=== PATIENT | female | born 1990 ===

== ENCOUNTER 2025-03-27 04:32 | Day surgery (SDC) | payer OTHER ==
[~2025-03-27 04:32] MED LIST: ONE-A-DAY PREN1 EAC1 PO
[2025-03-27] MEDS ORDERED: Ondansetron HCl 2 MG / ML 2ML Vial IV SCH (07:00)
[2025-03-27] MEDS ORDERED: NS 1,000 ML IV SCH (07:00)
[2025-03-27 09:12] VITALS: BP 121/80
== END 2025-03-27 10:11 | disposition home or self-care (01) ==
LOC: ATC 04:32
DX: O21.0 Mild hyperemesis gravidarum (principal)
CPT/HCPCS: 96361; 96374; J2405; J7030

== ENCOUNTER 2025-04-05 00:33 | Day surgery (SDC) | payer OTHER ==
[2025-04-05] MEDS ORDERED: Ondansetron HCl 2 MG / ML 2ML Vial IV SCH (06:55)
[2025-04-05] MEDS ORDERED: NS 1,000 ML IV SCH (06:55)
[2025-04-05 13:01] VITALS: BP 111/76
== END 2025-04-05 14:07 | disposition home or self-care (01) ==
LOC: ATC 00:33
DX: O21.0 Mild hyperemesis gravidarum (principal); Z79.899 Other long term (current) drug therapy
CPT/HCPCS: 96360; J7030

== ENCOUNTER → 2025-04-12 | Outpatient (CLI) | payer OTHER ==
[2025-04-16 12:37] LABS: C. TRACHOMATIS BY TMA,THINPREP Negative (Negative); N. GONORRHOEAE BY TMA,THINPREP Negative (Negative); SPECIMEN SOURCE Cervical
[2025-04-23 11:12] LABS: HPV HIGH RISK BY TMA Not Detected; HPV SOURCE Cervical
== END ==
LOC: LAB 18:08 → LAB SHORT 18:08
PROVIDERS: Family Medicine
DX: Z01.419 Encounter for gynecological examination (general) (routine) without abnormal findings (principal); Z11.3 Encounter for screening for infections with a predominantly sexual mode of transmission
CPT/HCPCS: 87491; 87591; 87624; G0123

== ENCOUNTER 2025-05-03 15:02 | Day surgery (SDC) | payer OTHER ==
[2025-05-03 15:00] VITALS: BP 109/82
[~2025-05-03 15:02] MED LIST changes: +NS 1,000 ML IV SCH; +Ondansetron HCl 2 MG / ML 2ML Vial IV SCH
== END 2025-05-03 16:12 | disposition home or self-care (01) ==
LOC: ATC 15:02
DX: O21.0 Mild hyperemesis gravidarum (principal); O99.619 Diseases of the digestive system complicating pregnancy, unspecified trimester; K90.41 Non-celiac gluten sensitivity; Z3A.00 Weeks of gestation of pregnancy not specified
CPT/HCPCS: 96361; 96374; J2405; J7030

== ENCOUNTER 2025-05-04 08:23 | Day surgery (SDC) | payer OTHER ==
[~2025-05-04 08:23] MED LIST changes: -NS 1,000 ML IV SCH; -Ondansetron HCl 2 MG / ML 2ML Vial IV SCH
[2025-05-04] MEDS ORDERED: Ondansetron HCl 2 MG / ML 2ML Vial IV SCH (09:15)
[2025-05-04] MEDS ORDERED: NS 1,000 ML IV SCH (09:15)
[2025-05-04 10:11] VITALS: BP 117/81
== END 2025-05-04 12:15 | disposition home or self-care (01) ==
LOC: ATC 08:23
DX: O21.0 Mild hyperemesis gravidarum (principal); O99.619 Diseases of the digestive system complicating pregnancy, unspecified trimester; K90.41 Non-celiac gluten sensitivity; Z3A.00 Weeks of gestation of pregnancy not specified
CPT/HCPCS: 96361; 96374; J2405; J7030

== ENCOUNTER 2025-05-10 02:02 | Day surgery (SDC) | payer OTHER ==
[2025-05-10] MEDS ORDERED: Ondansetron HCl 2 MG / ML 2ML Vial IV SCH (06:45)
[2025-05-10] MEDS ORDERED: NS 1,000 ML IV SCH (06:45)
[2025-05-10 10:08] VITALS: BP 110/63
== END 2025-05-10 11:33 | disposition home or self-care (01) ==
LOC: ATC 02:02
DX: O21.0 Mild hyperemesis gravidarum (principal); O99.619 Diseases of the digestive system complicating pregnancy, unspecified trimester; K90.41 Non-celiac gluten sensitivity; Z3A.00 Weeks of gestation of pregnancy not specified
CPT/HCPCS: 96365; C1751; J7030

== ENCOUNTER 2025-05-18 03:07 | Day surgery (SDC) | payer OTHER ==
[2025-05-18] MEDS ORDERED: NS 1,000 ML IV SCH (06:45)
[2025-05-18] MEDS ORDERED: Ondansetron HCl 2 MG / ML 2ML Vial IV SCH (06:45)
[2025-05-18 08:11] VITALS: BP 117/94
--- NOTE | 2025-05-18 09:00 | NUR ---
Pt declined zofran today. One of the lab tests drawn by Leonardo Alves RN peripherally as powerglide IV will not draw. Jeannette efren the remaining labs as pt is difficult to draw.
[2025-05-20 15:37] LABS: HIV 1,2 COMBO ANTIGEN/ANTIBODY Negative (Negative)
[2025-05-20 16:39] LABS: HEPATITIS C AB CIA INTERP Negative (Negative); HEPATITIS C ANTIBODY CIA INDEX 0.10 IV
== END 2025-05-18 09:23 | disposition home or self-care (01) ==
LOC: ATC 03:07
PROVIDERS: Family Medicine
DX: O21.0 Mild hyperemesis gravidarum (principal); O99.611 Diseases of the digestive system complicating pregnancy, first trimester; K90.41 Non-celiac gluten sensitivity; Z3A.01 Less than 8 weeks gestation of pregnancy
CPT/HCPCS: 36415; 86803; 87340; 87389; 96360; J7030